=== PATIENT | female | born 1995 | race Two or more races ===

== ENCOUNTER → 2019-03-28 | Outpatient (CLI) | payer MEDICAID ==
[2019-03-28 13:54] LABS: Basophils # (auto) 0.1 uL; Basophils % (auto) 0.8 % (0.0-2.0); Eosinophils # (auto) 0.5 uL; Eosinophils % (auto) 4.9 % (0.0-7.0); Hematocrit 37.7 % (36.0-46.0); Hemoglobin 12.7 g/dL (12.2-16.2); Lymphocytes # (auto) 1.7 uL; Lymphocytes % (auto) 17.1 % (10.0-50.0); Mean Corpuscular Hemoglobin 28.3 pg (28.0-32.0); Mean Corpuscular Hgb Conc. 33.6 g/dL (32.0-36.0); Mean Corpuscular Volume 84.2 fL (80.0-100.0); Monocytes # (auto) 0.4 uL; Monocytes % (auto) 3.5 % (0.0-12.0); Neutrophils # (auto) 7.5 uL; Neutrophils % (auto) 73.7 % (37.0-80.0); Platelet Count (auto) 365 10^3/uL (140-450); Red Blood Cells 4.48 10^6/uL (4.0-5.20); Red Cell Distribution Width 14.7 % (11.8-14.3); White Blood Cell 10.2 10^3/uL (4.4-10.8)
[2019-03-28 14:00] LABS: Urine Bacteria NONE SEEN /hpf (None Seen); Urine Blood TRACE /uL (Negative); Urine Mucus FEW (None Seen); Urine Specific Gravity 1.023 (1.001-1.035); Urine WBC 2 /hpf (0 - 5)
[2019-03-28 14:25] LABS: Albumin 3.4 g/dL (3.4-5.0); Calcium 8.9 mg/dL (8.5-10.1); Potassium 3.8 mmol/L (3.5-5.1)
[2019-03-28 14:29] LABS: Bilirubin, Total 0.3 mg/dL (0.2-1.0); Total Protein 7.8 g/dL (6.4-8.2)
== END | disposition home or self-care (01) ==
LOC: LAB 13:28
PROVIDERS: ATTEND Family Medicine
DX: E66.01 Morbid (severe) obesity due to excess calories (principal); N94.6 Dysmenorrhea, unspecified; Z82.49 Family history of ischemic heart disease and other diseases of the circulatory system
CPT/HCPCS: 36415; 80053; 80061; 81001; 83036; 84443; 85025

== ENCOUNTER → 2019-05-04 | Outpatient (CLI) | payer BC, MEDICAID ==
[2019-05-04 09:34] LABS: Prolactin 27.91 ng/mL (2.8-29.2)
[2019-05-04 09:35] LABS: Follicle Stimulating Hormone 1.54 IU/L (SEE BELOW); Leuteinizing Hormone 4.2 IU/L
== END | disposition home or self-care (01) ==
LOC: LAB 08:30
PROVIDERS: ATTEND Obstetrics & Gynecology
DX: N94.4 Primary dysmenorrhea (principal)
CPT/HCPCS: 36415; 82670; 83001; 83002; 84146; 84403; 84443

== ENCOUNTER 2020-05-29 11:16 | Emergency (ER) | payer BC, MEDICAID ==
[~2020-05-29] VITALS: Ht 147.3 cm; Wt 115.7 kg
[2020-05-29] MEDS ORDERED: SODIUM CHLORIDE 0.9% 1,000 ML IV ONE ×2 (12:30)
[2020-05-29 14:24] LABS: Basophils # (auto) 0.1 10 ^3/uL (0-0.2); Basophils % (auto) 0.4 % (0.0-2.0); Eosinophils # (auto) 0.1 10 ^3/uL (0-0.8); Hematocrit 22.7 % (36.0-46.0)
[2020-05-29 14:25] LABS: Eosinophils % (auto) 0.7 % (0.0-7.0); Lymphocytes # (auto) 1.1 10 ^3/uL (0.4-5.4); Lymphocytes % (auto) 7.1 % (10.0-50.0); Mean Corpuscular Hgb Conc. 29.9 g/dL (32.0-36.0); Mean Corpuscular Volume 73.6 fL (80.0-100.0); Monocytes # (auto) 0.6 10 ^3/uL (0-1.3); Monocytes % (auto) 4.1 % (0.0-12.0); Neutrophils # (auto) 13.9 10 ^3/uL (1.6-8.6); Neutrophils % (auto) 87.7 % (37.0-80.0); Nucleated Red Blood Cells % 0.1 %; Platelet Count (auto) 607 10^3/uL (140-450); Red Blood Cells 3.09 10^6/uL (4.0-5.20); White Blood Cell 15.9 10^3/uL (4.4-10.8)
[2020-05-29 14:31] LABS: Hemoglobin 6.8 g/dL (12.2-16.2); Red Cell Distribution Width 25.7 % (11.8-14.3)
[2020-05-29 14:42] LABS: Albumin 2.9 g/dL (3.4-5.0); Calcium 8.5 mg/dL (8.5-10.1); Potassium 3.9 mmol/L (3.5-5.1)
[2020-05-29 14:47] LABS: BUN/Creatinine Ratio 22.7; Bilirubin, Total 0.2 mg/dL (0.2-1.0); Total Protein 7.3 g/dL (6.4-8.2)
[2020-05-29 22:50] VITALS: BP 131/82
[2020-05-29 23:05] VITALS: BP 120/71
[2020-05-29 23:25] VITALS: BP 115/72
[2020-05-29 23:55] VITALS: BP 121/64
[2020-05-30 00:25] VITALS: BP 120/80
[2020-05-30 00:55] VITALS: BP 118/64
[2020-05-30 01:25] VITALS: BP 120/62
[2020-05-30 01:55] VITALS: BP 114/60
[2020-05-30 02:10] VITALS: BP 114/62
== END 2020-05-30 02:45 | disposition home or self-care (01) ==
LOC: ER 11:16
DX: R55 Syncope and collapse (principal); E86.0 Dehydration; D64.9 Anemia, unspecified
CPT/HCPCS: 36415; 36430; 70450; 71045; 80053; 85025; 86850; 86900; 86901; 86920; 96360; 99285; J7030; P9016